=== PATIENT | male | born 1950 | race Caucasian/White ===

== ENCOUNTER → 2016-09-04 | Outpatient (CLI) | payer OTHER ==
[~2016-09-04] MED LIST: ALBUTEROL17 GM INH; AMITRIPTYLINE H75 MG PO; AMITRYPTYLINE PO; AMOXICILLIN875 MG PO; ASPIRIN81 M1 PO; ASPIRIN81 M2 PO; ASPIRIN81 MG PO; ATORVASTATIN CA80 MG PO; BENZTROPINE MESY2 MG PO; BUSPIRONE HCL10 M2 PO; BUSPIRONE HCL10 MG PO; CHANTIX1 MG PO; CLEOCIN IV; COMBIVENT14.7 GM INH; DONEPEZIL HCL10 MG PO; FENOFIBRATE48 MG PO; FOLIC ACID PO; FOLIC ACID1 MG PO; GABAPENTIN600 MG PO; HYDROCODON-ACE1 EAC7 PO; LEVOTHYROXINE50 MCG PO; LEVOTHYROXINE75 MCG PO; LISINOPRIL2.5 MG PO; LORTAB 7.5-5001 TAB PO; LOVAZA1 GM PO; NEXIUM PO; NICOTINE TRANSD21 MG EXT; OMEPRAZOLE40 M1 PO; ONE DAILY ADUL1 EACH PO; PERPHENAZINE4 MG PO; QVAR7.3 GM INH; SPIRIVA18 MCG INH; VANCOMYCIN HCL1 GM IV; VITAMIN B-121000 MC1 SL; VITAMIN D2000 UNIT PO
--- NOTE | ~2016-09-04 | US136 ---
[facility] A Service of [facility] & [facility] RADIOLOGY TEXT RESULTS PATIENT: KADI GILMAN SR LOCATION: [facility] : 54 UNIT #: [id number] AGE: [address]: Rukhsana De Los Santos MD SEX: M ORDER DR: [id number] [facility] [address] [place], [place] [address] [id number] O MR#: [id number] Acc #: [id number] NAME: KADI GILMAN : 1950 SEX: M STUDY DATE/TIME: 09/04/2016 9:31 UNIT: [facility] ROOM: STUDY DESCRIPTION: U/L [facility] Art Study [facility] Attending Physician: Martinez De Los Santos M.D. Referring Physician: Martinez De Los Santos M.D. Ordering Physician: Martinez De Los Santos M.D. Primary Care Physician: Margi Jaquez M.D. MEDICAL IMAGING REPORT This report is preliminary unless electronic signature is present DATE OF EXAM 09/04/16 REASON FOR EXAM Absent pulses, lower extremity. EXAM Bilateral lower extremity URBANO. FINDINGS The right brachial pressure is 131, left is 120. The right dorsalis pedis pressure is 140 and posterior tibial 139 for an URBANO of 1.07 and a first pressure of 85 mmHg. Left dorsalis pedis pressure is 125 and posterior tibial 100 for an URBANO of 0.95 and a first toe pressure of 85 mmHg. PVR waveform at the ankle and first toe level appear to be intact and symmetric bilateral. Arterial waveforms at the right dorsalis pedis artery triphasic and posterior tibial artery biphasic. Waveforms at the left dorsalis pedis artery are biphasic and posterior tibial are biphasic. IMPRESSION No arterial insufficiency in either the right or the left lower extremity with adequate perfusion of the first toes. Dictated by... Felicity Robertson M.D. THIS IS AN ELECTRONICALLY VERIFIED REPORT Felicity Robertson M.D. at 09/09/2016 7:59 AM SARITHA/jazz [facility] A Service of [facility] & [facility] RADIOLOGY TEXT RESULTS PATIENT: KADI GILMAN SR LOCATION: [facility] #: [id number] : [birth year] UNIT #: [id number] AGE: [address]: Rukhsana De Los Santos MD SEX: M ORDER DR: TD: 09/05/2016 16:43 JOB #: [id number] MEDICAL IMAGING REPORT Page 1 of 1 COPY
--- NOTE | ~2016-09-04 | CT92 ---
[facility] A Service of [facility] & [facility] RADIOLOGY TEXT RESULTS PATIENT: KADI GILMAN SR LOCATION: [facility] : 54 UNIT #: [id number] AGE: [address]: Rukhsana De Los Santos MD SEX: M ORDER DR: [id number] [facility] [address] [place], [place] [address] [id number] O MR#: [id number] Acc #: [id number] NAME: KADI GILMAN : 1950 SEX: M STUDY DATE/TIME: 09/04/2016 9:55 UNIT: [facility] ROOM: STUDY DESCRIPTION: CT Lower Ext Lt Wo Cont Attending Physician: Martinez De Los Santos M.D. Referring Physician: Martinez De Los Santos M.D. Ordering Physician: Martinez De Los Santos M.D. Primary Care Physician: Margi Jaquez M.D. MEDICAL IMAGING REPORT This report is preliminary unless electronic signature is present EXAM CT left foot and ankle HISTORY 66-year-old male with vascular disease and Charcot arthropathy left foot and ankle. The CT exam was performed with one or more of the following radiation dose reduction techniques: automatic exposure control, adjustment of mA and/or kV according to patient size, and iterative reconstruction. COMPARISON Left foot and ankle films 08/27/2016 FINDINGS Thin section axial images performed through the left ankle and midfoot with multiplanar reconstructed images reviewed at a workstation. FINDINGS The examination demonstrates deformity of the midfoot compatible with a history of Charcot arthropathy. There is a rocker bottom deformity of the midfoot. Advanced arthropathy noted primarily at the talonavicular and navicular cuneiform articulations as well as at the tarsal metatarsal joints. There is dorsal subluxation and fragmentation of the navicular as well as extensive osteolysis of the cuboid to the extent that the metatarsals now partially articulates with the anterior process of the calcaneus and head of the talus. There is extensive dorsal displacement of the medial and intermediate cuneiforms and dorsal lateral displacement of the lateral cuneiform and cuboid bone. Mild arthritic change is seen at the ankle and subtalar joint, most advanced involving the medial subtalar joint with subchondral cystic change. Mild soft tissue swelling and edema about the foot and ankle. There is relatively normal STS. [facility] A Service of [facility] & [facility] RADIOLOGY TEXT RESULTS PATIENT: KADI GILMAN SR [id number] : 54 UNIT #: [id number] AGE: [address]: Rukhsana De oLs Santos MD SEX: M ORDER DR: articulation of the medial cuneiform with the first metatarsal base, however the second, third, fourth and fifth metatarsals demonstrate abnormal positioning and alignment due to underlying arthrographic change. There is a moderate amount of cutaneous edema and subcutaneous edema along the plantar aspect of the foot but no evidence of a penetrating ulcer. Visualized ankle tendons unremarkable. IMPRESSION 1. Advanced arthropathic changes within the midfoot with severe disruption of the tarsometatarsal joints as detailed above as well as disruption at the talonavicular and calcaneal cuboid articulations with predominately dorsal subluxation and fragmentation of the midfoot bones. 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 2. Severe rocker bottom deformity of the foot but no penetrating ulcer identified. Dictated by... Trent Connor M.D. THIS IS AN ELECTRONICALLY VERIFIED REPORT Trent Connor M.D. at 09/07/2016 3:55 PM Jillian TD: 09/07/2016 11:41 JOB #: [id number] MEDICAL IMAGING REPORT Page 1 of 1 COPY
== END | disposition home or self-care (01) ==
LOC: CCAT 09:11
DX: M14.672 Charcot's joint, left ankle and foot (principal); M21.6X2 Other acquired deformities of left foot
CPT/HCPCS: 73700; 93922

== ENCOUNTER → 2016-11-23 | Outpatient (CLI) | payer OTHER ==
--- NOTE | ~2016-11-23 | EKG ---
PATIENT: KADI GILMAN UNIT #: [id number] Ventricular Rate: 100 BPM Atrial Rate: 100 BPM P-R Interval: 220 ms QRS Duration: 108 ms Q-T Interval: 348 ms QTC Calculation(Bezet): 448 ms P [place]: 42 degrees Calculated R [place]: 34 degrees Calculated T [place]: 71 degrees Diagnosis Line: Sinus rhythm with 1st degree A-V block Diagnosis Line: Nonspecific ST and T wave abnormality Diagnosis Line: Abnormal ECG Diagnosis Line: No previous ECGs available Diagnosis Line: Confirmed by VIKI NDIAYE MD ([id number]) on 11/23/2016 Diagnosis Line: 8:02:09 PM INTERPRETING MD: SENTHIL KINNEY
[2016-11-23 15:11] LABS: BUN/CREATININE RATIO 8.33; CALCIUM SERUM 9.4 mg/dL (8.4-10.2); CREATININE SERUM 1.2 mg/dL (0.6-1.4); GLOM FILT RATE Estimated 63.5 mL/min (>60); POTASSIUM 4.2 mmol/L (3.5-5.1)
== END | disposition home or self-care (01) ==
LOC: CAMB 13:37
PROVIDERS: Orthopaedic Surgery
DX: Z01.818 Encounter for other preprocedural examination (principal); M14.672 Charcot's joint, left ankle and foot; R94.31 Abnormal electrocardiogram [ECG] [EKG]; I44.0 Atrioventricular block, first degree
CPT/HCPCS: 36415; 80048; 93005